=== PATIENT | female | born 1950 | race Caucasian/White ===

== ENCOUNTER 2024-11-05 17:19 | Inpatient (IN) ==
[2024-11-05 18:01] LABS: Basophils # (Auto) 0.02 K/mcL (0.00-0.30); Basophils % (Auto) 0.3 % (0.0-2.0); Eosinophils # (Auto) 0.12 K/mcL (0.00-0.70); Eosinophils % (Auto) 1.8 % (0.0-7.0); Hematocrit 46.8 % (34.1-44.9); Hemoglobin 13.6 g/dL (11.2-15.7); Lymphocytes # (Auto) 1.68 K/mcL (1.50-4.80); Lymphocytes % (Auto) 24.7 % (15.5-49.0); Mean Corpuscular HGB Conc 29.1 g/dL (31.0-36.0); Mean Platelet Volume 9.5 fL (8.8-12.5); Monocytes % (Auto) 7.4 % (1.0-12.0); Neutrophils % (Auto) 65.7 % (38.0-78.0); Platelet Count 221 K/mcL (140-440); RBC 4.98 M/mcL (3.59-5.38); WBC 6.8 K/mcL (4.5-11.0)
[2024-11-05 18:18] LABS: Blood Urea Nitrogen 16 mg/dL (8-23); Calcium 8.8 mg/dL (8.6-10.4); Carbon Dioxide 25 mmol/L (22-30); Chloride 100 mmol/L (96-108); Glomerular Filtration Rate 86; Glucose 270 mg/dL (70-105); Potassium 3.4 mmol/L (3.3-5.1); Sodium 138 mmol/L (133-145)
[2024-11-05] MEDS: FUROSEMIDE 40 MG/4 ML VIAL IV ONE (18:39)
[2024-11-05] MEDS: POTASSIUM CHLORIDE 20 MEQ TABLET PO ONE (18:39)
[2024-11-05] MEDS ORDERED: ONDANSETRON 4 MG/2 ML VIAL IV PRN (23:09)
[2024-11-05] MEDS ORDERED: SENNOSIDES 1 TABLET PO PRN (23:09)
[2024-11-05] MEDS ORDERED: DEXTROSE 31 GM ORAL.SUSP PO PRN (23:09)
[2024-11-05] MEDS ORDERED: DEXTROSE 50% 50 ML VIAL IV PRN (23:09)
[2024-11-05] MEDS ORDERED: LACTULOSE 20 GM/30 ML ORAL.SOL PO PRN (23:09)
[2024-11-05] MEDS: INSULIN LISPRO 1 UNIT/0.01 ML UNIT SQ ONE (23:54)
[2024-11-06] MEDS: 0.9 % SODIUM CHLORIDE 10 ML SYRINGE IV SCH (00:11)
[2024-11-06] MEDS: INSULIN LISPRO 1 UNIT/0.01 ML UNIT SQ ONE (00:47)
[2024-11-06 07:24] LABS: ALT/SGPT 7 U/L (<40); AST/SGOT 22 U/L (<32); Albumin 3.3 gm/dL (3.2-5.2); Albumin/Globulin Ratio 1.1 (1.0-2.3); Alkaline Phosphatase 88 U/L (39-117); Bilirubin,Direct 0.6 mg/dL (<0.3); Bilirubin,Total 1.2 mg/dL (0.1-1.0); Blood Urea Nitrogen 15 mg/dL (8-23); Calcium 8.9 mg/dL (8.6-10.4); Carbon Dioxide 26 mmol/L (22-30); Chloride 102 mmol/L (96-108); Glomerular Filtration Rate 86; Glucose 164 mg/dL (70-105); Lactate Dehydrogenase 256 U/L (135-225); Phosphorous 3.8 mg/dL (2.5-4.5); Potassium 3.6 mmol/L (3.3-5.1); Sodium 140 mmol/L (133-145); Triglycerides 79 mg/dL (<150); Uric Acid 8.8 mg/dL (2.5-8.0)
[2024-11-06] MEDS: INSULIN LISPRO 1 UNIT/0.01 ML UNIT SQ SCH (07:30)
[2024-11-06 07:38] LABS: Hemoglobin A1C 9.1 % Hgb (4.0-6.0)
[2024-11-06] MEDS ORDERED: FUROSEMIDE 40 MG/4 ML VIAL IV SCH (08:00)
[2024-11-06] MEDS ORDERED: acetaZOLAMIDE SOD 500 MG VIAL IV SCH (08:00)
[2024-11-06] MEDS: POTASSIUM CHLORIDE 20 MEQ TABLET PO SCH (09:25)
[2024-11-06] MEDS: acetaZOLAMIDE SOD 500 MG VIAL IV SCH (09:26)
[2024-11-06] MEDS: FUROSEMIDE 40 MG/4 ML VIAL IV SCH (09:26)
[2024-11-06] MEDS: INSULIN GLARGINE, HUMAN 1 UNIT/0.01 ML SQ SCH (09:26)
[2024-11-06] MEDS: ENOXAPARIN 40 MG/0.4 ML SYRINGE SQ SCH (09:27)
[2024-11-06] MEDS: DOCUSATE SODIUM 100 MG CAPSULE PO SCH (09:27)
[2024-11-06] MEDS: POTASSIUM CHLORIDE 20 MEQ TABLET PO ONE (17:44)
[2024-11-07 06:35] LABS: ALT/SGPT 7 U/L (<40); AST/SGOT 20 U/L (<32); Albumin 3.1 gm/dL (3.2-5.2); Alkaline Phosphatase 90 U/L (39-117); Bilirubin,Direct 0.7 mg/dL (<0.3); Bilirubin,Total 1.5 mg/dL (0.1-1.0); Blood Urea Nitrogen 23 mg/dL (8-23); Calcium 9.1 mg/dL (8.6-10.4); Carbon Dioxide 26 mmol/L (22-30); Chloride 100 mmol/L (96-108); Glomerular Filtration Rate 86; Glucose 91 mg/dL (70-105); Lactate Dehydrogenase 226 U/L (135-225); Phosphorous 5.7 mg/dL (2.5-4.5); Sodium 138 mmol/L (133-145); Triglycerides 61 mg/dL (<150); Uric Acid 9.2 mg/dL (2.5-8.0)
[2024-11-07] MEDS: POTASSIUM CHLORIDE 20 MEQ TABLET PO SCH (08:32)
[2024-11-07] MEDS: SPIRONOLACTONE 25 MG TABLET PO SCH (11:21)
[2024-11-07] MEDS: LISINOPRIL 5 MG TABLET PO SCH (20:42)
[2024-11-08] MEDS: ACETAMINOPHEN 325 MG TABLET PO PRN (02:02)
[2024-11-08 05:39] LABS: Basophils # (Auto) 0.04 K/mcL (0.00-0.30); Basophils % (Auto) 0.6 % (0.0-2.0); Eosinophils # (Auto) 0.17 K/mcL (0.00-0.70); Eosinophils % (Auto) 2.4 % (0.0-7.0); Hematocrit 41.4 % (34.1-44.9); Hemoglobin 12.8 g/dL (11.2-15.7); Lymphocytes # (Auto) 1.77 K/mcL (1.50-4.80); Lymphocytes % (Auto) 24.5 % (15.5-49.0); Mean Cell Volume 89.6 fL (80.0-100.0); Mean Corpuscular HGB Conc 30.9 g/dL (31.0-36.0); Monocytes # (Auto) 0.73 K/mcL (0.10-0.90); Monocytes % (Auto) 10.1 % (1.0-12.0); Neutrophils % (Auto) 62.4 % (38.0-78.0); Platelet Count 240 K/mcL (140-440); RBC 4.62 M/mcL (3.59-5.38); Red Cell Distribution Width 14.8 % (11.5-14.5); WBC 7.2 K/mcL (4.5-11.0)
[2024-11-08 06:00] LABS: ALT/SGPT 7 U/L (<40); AST/SGOT 19 U/L (<32); Alkaline Phosphatase 91 U/L (39-117); Bilirubin,Total 0.9 mg/dL (0.1-1.0); Blood Urea Nitrogen 36 mg/dL (8-23); Calcium 9.1 mg/dL (8.6-10.4); Carbon Dioxide 27 mmol/L (22-30); Chloride 98 mmol/L (96-108); Glomerular Filtration Rate 64; Glucose 145 mg/dL (70-105); Potassium 4.2 mmol/L (3.3-5.1); Sodium 136 mmol/L (133-145)
[2024-11-09 06:01] LABS: Basophils # (Auto) 0.02 K/mcL (0.00-0.30); Basophils % (Auto) 0.3 % (0.0-2.0); Eosinophils # (Auto) 0.07 K/mcL (0.00-0.70); Eosinophils % (Auto) 0.9 % (0.0-7.0); Hematocrit 41.7 % (34.1-44.9); Lymphocytes # (Auto) 1.33 K/mcL (1.50-4.80); Lymphocytes % (Auto) 17.7 % (15.5-49.0); Mean Cell Volume 88.5 fL (80.0-100.0); Mean Corpuscular HGB Conc 31.2 g/dL (31.0-36.0); Mean Platelet Volume 9.7 fL (8.8-12.5); Monocytes # (Auto) 0.61 K/mcL (0.10-0.90); Monocytes % (Auto) 8.1 % (1.0-12.0); Neutrophils % (Auto) 72.9 % (38.0-78.0); Platelet Count 251 K/mcL (140-440); RBC 4.71 M/mcL (3.59-5.38); Red Cell Distribution Width 14.9 % (11.5-14.5); WBC 7.5 K/mcL (4.5-11.0)
[2024-11-09 06:39] LABS: ALT/SGPT 7 U/L (<40); AST/SGOT 20 U/L (<32); Albumin 3.1 gm/dL (3.2-5.2); Alkaline Phosphatase 96 U/L (39-117); Bilirubin,Total 0.9 mg/dL (0.1-1.0); Blood Urea Nitrogen 37 mg/dL (8-23); Calcium 9.2 mg/dL (8.6-10.4); Carbon Dioxide 28 mmol/L (22-30); Chloride 99 mmol/L (96-108); Globulin 3.1 gm/dL (2.2-3.7); Glomerular Filtration Rate 64; Glucose 180 mg/dL (70-105); Potassium 4.2 mmol/L (3.3-5.1); Sodium 136 mmol/L (133-145)
[2024-11-09] MEDS: LOPERAMIDE 2 MG CAPSULE PO PRN (08:59)
[2024-11-09] MEDS: INSULIN GLARGINE, HUMAN 1 UNIT/0.01 ML SQ SCH (10:58)
[2024-11-10 06:27] LABS: Basophils # (Auto) 0.04 K/mcL (0.00-0.30); Basophils % (Auto) 0.7 % (0.0-2.0); Eosinophils # (Auto) 0.19 K/mcL (0.00-0.70); Eosinophils % (Auto) 3.4 % (0.0-7.0); Hematocrit 43.1 % (34.1-44.9); Hemoglobin 12.9 g/dL (11.2-15.7); Lymphocytes # (Auto) 1.74 K/mcL (1.50-4.80); Lymphocytes % (Auto) 31.1 % (15.5-49.0); Mean Cell Volume 90.7 fL (80.0-100.0); Mean Corpuscular HGB Conc 29.9 g/dL (31.0-36.0); Mean Platelet Volume 9.6 fL (8.8-12.5); Monocytes # (Auto) 0.56 K/mcL (0.10-0.90); Neutrophils % (Auto) 54.6 % (38.0-78.0); Platelet Count 239 K/mcL (140-440); RBC 4.75 M/mcL (3.59-5.38); Red Cell Distribution Width 14.8 % (11.5-14.5); WBC 5.6 K/mcL (4.5-11.0)
[2024-11-10 06:56] LABS: ALT/SGPT 8 U/L (<40); AST/SGOT 21 U/L (<32); Albumin 3.1 gm/dL (3.2-5.2); Alkaline Phosphatase 90 U/L (39-117); Bilirubin,Total 0.7 mg/dL (0.1-1.0); Blood Urea Nitrogen 33 mg/dL (8-23); Calcium 8.9 mg/dL (8.6-10.4); Carbon Dioxide 26 mmol/L (22-30); Chloride 104 mmol/L (96-108); Globulin 3.1 gm/dL (2.2-3.7); Glomerular Filtration Rate 74; Glucose 115 mg/dL (70-105); Potassium 4.2 mmol/L (3.3-5.1); Sodium 140 mmol/L (133-145)
[2024-11-10] MEDS: FUROSEMIDE 40 MG TABLET PO SCH (09:39)
[2024-11-10] MEDS: METOPROLOL SUCCINATE 25 MG TAB.XL.24H PO SCH (09:40)
[2024-11-10] MEDS: METOPROLOL SUCCINATE 25 MG TAB.XL.24H PO ONE (13:47)
[2024-11-11] MEDS ORDERED: METOPROLOL SUCCINATE 25 MG TAB.XL.24H PO SCH (09:00)
== END 2024-11-10 15:30 | disposition home or self-care (01) | DRG 280 ==
LOC: ED 17:19 → ICU 22:56
PROVIDERS: ADMIT Internal Medicine; ATTEND Student in an Organized Health Care Education/Training Program